=== PATIENT | male | born 2000 | race Caucasian/White ===

== ENCOUNTER 2020-02-03 12:58 | Outpatient (CLI) | payer BC ==
--- NOTE | 2020-02-03 13:41 | RAD ---
Left knee 4 views HISTORY: Left knee pain. FINDINGS: Joint spaces are preserved. Postoperative changes include metallic anchors at the upper ant erior tibia and the distal medial femur with the appearance of ACL repair. No acute fracture, dislocation, or aggressive osseous erosions, or fluid distention of the suprapatel lar bursa. IMPRESSION : No acute osseous abnormalities are demonstrated.
== END 2020-02-03 12:59 | disposition home or self-care (01) ==
LOC: SCSRAD 12:58
DX: M23.92 Unspecified internal derangement of left knee (principal)